=== PATIENT | male | born 1970 | race African-American/Black ===

== ENCOUNTER 2020-11-10 22:26 | Emergency (ER) | payer OTHER ==
[~2020-11-10] VITALS: Ht 165.1 cm; Wt 59.1 kg
[2020-11-11] MEDS ORDERED: IBUPROFEN 800 MG TABLET PO ONE (03:00)
[2020-11-11 03:50] VITALS: BP 136/86
== END 2020-11-11 03:52 | disposition home or self-care (01) ==
LOC: EMS 22:28
DX: S60.111A Contusion of right thumb with damage to nail, initial encounter (principal); V43.52XA Car driver injured in collision with other type car in traffic accident, initial encounter; Y93.89 Activity, other specified; Y92.488 Other paved roadways as the place of occurrence of the external cause; Y99.8 Other external cause status
CPT/HCPCS: 99283